=== PATIENT | female | born 1955 | race Caucasian/White ===

== ENCOUNTER → 2017-03-13 | Outpatient (CLI) | payer MEDICARE, OTHER ==
[~2017-03-13] MED LIST: ACETAMINOPHEN PO; ALBUTEROL17 G1 INH; ALBUTEROL17 GM INH; AMBIEN10 MG PO; BYSTOLIC10 MG PO; CELEXA PO; CLARITIN10 MG PO; COUMADIN2.5 MG; CRESTOR PO; CYMBALTA PO; DICLOFENAC PO; FELDENE20 MG PO; GLUCOTROL PO; GUAIFENESIN PO; HUMALOG MIX 75/10 ML SUBQ; HUMALOG100 U/ML SUBQ; LANTUS SOLOSTAR3 ML SUBQ; LEVEMIR100 U/ML SQ; LISINOPRIL10 MG PO; LORTAB 7.5-5001 TAB PO; LORTAB 7.51 TAB 7.5/; LOVAZA1 G PO; MEDROL PO; METFORMIN PO; MUCINEX OTC; NABUMETONE PO; NOVOLOG7030 INJ; NOVOLOG7030 SUBQ; PERCOCET PO; PREDNISONE PO; PRILOSEC PO; PRISTIQ50 MG PO; SPECTAZOLE15 GM TP; TEMAZEPAM30 MG PO; TRIAMCINOLONE A15 G2 EXT; TRIGLIDE160 M1 PO; ULTRAM PO; VIBRAMYCIN100 M1 DOB; VITAMIN D50000 UNIT PO; VOLTAREN75 MG PO; ZANAFLEX4 M1 PO; ZITHROMAX PO; ZOLOFT PO; ZOLOFT50 MG PO; [UNRECOGNIZED DRUG - OTHER]
--- NOTE | ~2017-03-13 | US128 ---
[id number] [facility] [address] [place], [place] [address] [id number] O MR#: [id number] Acc #: [id number] NAME: VANESSA RUIZ : 1955 SEX: F STUDY DATE/TIME: 03/13/2017 13:28 UNIT: [facility]US ROOM: STUDY DESCRIPTION: US Thyroid Attending Physician: Rudolph Mckeon M.D. Referring Physician: Rudolph Mckeon M.D. Ordering Physician: Rudolph Mckeon M.D. Primary Care Physician: Brian Escalera M.D. MEDICAL IMAGING REPORT This report is preliminary unless electronic signature is present EXAM Thyroid ultrasound, 03/13/2017 COMPARISON Prior ultrasound dated 03/29/2015 HISTORY Follow-up known thyroid nodules. FINDINGS On the right in the mid to upper portion of the gland there is a solid nodule, with normal to slightly increased vascularity. It measures 2.1 x 1.0 x 1.6 cm. On the study of 2014 it measured about 1.6 x 1.0 x 0.7 cm and has clearly increased slightly in size. A second right lobe hypoechoic nodule at that time measured 7.0 x 12.0 x 6.0 mm. That nodule on the current study measures about 9.0 x 5.0 x 7.0 mm. In the left lobe of the gland there is a lower pole complex nodule or nodules, with a more hypoechoic possibly cystic lower pole component with some rim calcification measuring 1.4 x 0.9 x 0.9 cm, not convincingly changed since the prior study. There is an adjacent solid but honeycomb nodule measuring 1.5 x 0.8 x 1.4 cm. It was previously measured at about 1.5 x 1.2 x 0.7 cm, not convincingly changed. IMPRESSION 1. Bilateral thyroid nodules mostly stable since the prior study but a solid nodule in the right has clearly increased in size since the examination of 03/29/2015. It currently measures 2.1 x 1.0 x 1.6 cm compared to 1.6 x 1.0 x 0.7 cm. It would be easily amenable to ultrasound guided needle aspiration. The same nodule probably measured 1.6 x 1.1 x 1.0 cm in 2013. 2. No other nodules meeting criteria for tissue sampling are seen. Dictated by... Jordan Hare M.D. THIS IS AN ELECTRONICALLY VERIFIED REPORT Jordan Hare M.D. at 03/18/2017 1:22 PM Jad TD: 03/16/2017 12:13 JOB #: [id number] MEDICAL IMAGING REPORT Page 1 of 1 COPY
== END | disposition home or self-care (01) ==
LOC: CGUS 01-29 13:30
DX: E04.2 Nontoxic multinodular goiter (principal)
CPT/HCPCS: 76536

== ENCOUNTER → 2017-06-22 | Outpatient (CLI) | payer MEDICARE, OTHER ==
--- NOTE | ~2017-06-22 | XA230 ---
[facility] A Service of [facility] RADIOLOGY TEXT RESULTS PATIENT: VANESSA RUIZ [facility] : 53 UN[facility] #: [id number] AGE: [address]: Rudolph Mckeon MD SEX: F ORDER DR: [id number] [facility] [address] [place], [place] [address] [id number] O MR#: [id number] Acc #: [id number] NAME: VANESSA RUIZ : 1955 SEX: F STUDY DATE/TIME: 06/22/2017 9:31 UNIT: [facility] ROOM: STUDY DESCRIPTION: XA FNA Attending Physician: Rudolph Mckeon M.D. Referring Physician: Rudolph Mckeon M.D. Ordering Physician: Rudolph Mckeon M.D. Primary Care Physician: Brian Escalera M.D. MEDICAL IMAGING REPORT This report is preliminary unless electronic signature is present EXAM Ultrasound-guided right thyroid FNA HISTORY This patient has an enlarging hypoechoic nodule within the right lobe of the thyroid gland last seen on an ultrasound from March 13, 2017. She has been referred for biopsy. PROCEDURE The risks, benefits, and alternatives to the procedure were explained to the patient, and a signed, informed consent was obtained. She was placed supine on the angiographic table and was prepped and draped in usual sterile fashion. Time-out was performed as per protocol. Skin and subcutaneous tissues were anesthetized with buffered lidocaine and a total of 4 separate passes were made into the lesion with direct sterile sonographic guidance using 25-gauge needles. Manual pressure was then applied until hemostasis was obtained. Patient tolerated the procedure well and there were no immediate complications. IMPRESSION Technically successful ultrasound-guided right thyroid FNA as noted above, ultrasound was used during the procedure and permanent images were saved. Dictated by... Vikki Urbina M.D. THIS IS AN ELECTRONICALLY VERIFIED REPORT Vikki Urbina M.D. at 06/23/2017 4:54 PM AFF/aa TD: 06/23/2017 13:31 JOB #: [id number] [facility] A Service of [facility] RADIOLOGY TEXT RESULTS PATIENT: VANESSA RUIZ LOCATION: [facility] #: [id number] : [birth year] UNIT #: [id number] AGE: [address]: Rudolph Mckeon MD SEX: F ORDER DR: MEDICAL IMAGING REPORT Page 1 of 1 COPY
== END | disposition home or self-care (01) ==
LOC: CIVR 06-05 08:00
DX: E04.2 Nontoxic multinodular goiter (principal)
CPT/HCPCS: 76942; 88173; 88305